=== PATIENT | female | born 1990 | race Caucasian/White ===

== ENCOUNTER → 2022-02-15 | Outpatient (CLI) | payer OTHER ==
[~2022-02-15] MED LIST: COLACE 100MG C100 MG PO; FERROUS SULFAT325 M2 PO; IBUPROFEN600 MG PO; NORCO 5-325 TA1 EACH PO
== END ==
LOC: KOH-I 09:50
DX: M25.551 Pain in right hip (principal); M25.351 Other instability, right hip; M43.17 Spondylolisthesis, lumbosacral region; M51.37 Other intervertebral disc degeneration, lumbosacral region
CPT/HCPCS: 72100; 73502